=== PATIENT | female | born 1980 | race Caucasian/White ===

== ENCOUNTER 2017-11-29 06:48 | Day surgery (SDC) | payer BC ==
[~2017-11-29 06:48] MED LIST: Lactated Ringers 1,000 ML IV SCH; Lidocaine 1%/Sod Bicarbonate in NS 8.4% 1 ML Syringe IV PRN; Sodium Chloride 0.9% 10 ML Syringe FLUSH PRN
[2017-11-29] MEDS ORDERED: Bupivacaine 0.5% 30 ML SDV ONE (07:30)
--- NOTE | 2017-11-29 07:32 | PCM.PREANE ---
Preanesthetic Assessment - Anesthesia/Transfusion/Family Hx Anesthesia History: Prior Anesthesia Without Reaction Family History of Anesthesia Reaction: No Transfusion History: No Prior Transfusion(s) - Review of Systems General: Other (cold 1 week ago, no syptoms) Pulmonary: Other (hx of pulmonary emboli related to control pill, protein s deficiency, no current treatment) Cardiovascular: Other (SR, old inferior infarct) Gastrointestinal: No Symptoms Neurological: No Symptoms - Physical Assessment NPO Status Date: 11/28/17 NPO Status Time: 18:00 Pulse: 89 O2 Sat by Pulse Oximetry: 94 Respiratory Rate: 16 Blood Pressure: 141/88 Temperature: 36.6 C Weight: 119 kg ASA Class: 2 Mental Status: Alert & Oriented x3 Airway Class: Mallampati = 3 Dentition: Reports: Normal Dentition Thyro-Mental Finger Breadths: 3 Mouth Opening Finger Breadths: 3 ROM/Head Extension: Full Lungs: Clear to Auscultation, Normal Respiratory Effort Cardiovascular: Regular Rate, Regular Rhythm, No Murmurs - Lab Values: Laboratory Last Values WBC 7.09 K/mm3 (3.98-10.04) 11/29/17 07:15 RBC 4.54 M/mm3 (3.98-5.22) 11/29/17 07:15 Hgb 13.2 gm/L (11.2-15.7) 11/29/17 07:15 Hct 41.3 % (34.1-44.9) 11/29/17 07:15 MCV 91.0 fl (79.4-94.8) 11/29/17 07:15 MCH 29.1 pg (25.6-32.2) 11/29/17 07:15 MCHC 32.0 g/dl (32.2-35.5) L 11/29/17 07:15 RDW Std Deviation 43.9 fL (36.4-46.3) 11/29/17 07:15 Plt Count 322 K/mm3 (182-369) 11/29/17 07:15 MPV 9.4 fl (9.4-12.3) 11/29/17 07:15 Neut % (Auto) 68.5 % (34.0-71.1) 11/29/17 07:15 Lymph % (Auto) 22.6 % (19.3-51.7) 11/29/17 07:15 Crosby % (Auto) 6.1 % (4.7-12.5) 11/29/17 07:15 Eos % (Auto) 2.4 (0.7-5.8) 11/29/17 07:15 Baso % (Auto) 0.4 % (0.1-1.2) 11/29/17 07:15 Neut # (Auto) 4.86 K/mm3 (1.56-6.13) 11/29/17 07:15 Lymph # (Auto) 1.60 K/mm3 (1.18-3.74) 11/29/17 07:15 Crosby # (Auto) 0.43 K/mm3 (0.24-0.36) H 11/29/17 07:15 Eos # (Auto) 0.17 K/mm3 (0.04-0.36) 11/29/17 07:15 Baso # (Auto) 0.03 K/mm3 (0.01-0.08) 11/29/17 07:15 Urine HCG, Qual Negative (NEGATIVE) 11/29/17 06:55 - Allergies Allergies/Adverse Reactions: Allergies Allergy/AdvReac Type Severity Reaction Status Date / Time animal dander Allergy Cannot Verified 11/28/17 10:34 Remember seasonal allergies Allergy Cannot Uncoded 11/28/17 10:34 Remember - Blood Blood Available: No Product(s) Available: None - Anesthesia Plan Pre-Op Medication Ordered: None - Acknowledgements Anesthesia Type Planned: General Anesthesia Pt an Appropriate Candidate for the Planned Anesthesia: Yes Alternatives and Risks of Anesthesia Discussed w Pt/Guardian: Yes Pt/Guardian Understands and Agrees with Anesthesia Plan: Yes PreAnesthesia Questionnaire HEENT History: Reports: Allergic Rhinitis Cardiovascular History: Reports: None Respiratory History: Reports: PE Gastrointestinal History: Reports: None Genitourinary History: Reports: None, STD, UTI, Recurrent [employer] History: Reports: Other (See Below) Other OB/BYN History: herpes genitalia, irregular menses, pelvic pain, vaginal pain Musculoskeletal History: Reports: None Neurological History: Reports: Migraines Psychiatric History: Reports: None Endocrine/Metabolic History: Reports: Obesity/BMI 30+ Hematologic History: Reports: Other (See Below) Other Hematologic History: blood clotting disorder, protein S deficiency Immunologic History: Reports: None Oncologic (Cancer) History: Reports: None Dermatologic History: Reports: None - Past Surgical History Head Surgeries/Procedures: Reports: None HEENT Surgical History: Reports: Oral Surgery Cardiovascular Surgical History: Reports: None Respiratory Surgical History: Reports: None GI Surgical History: Reports: Cholecystectomy Endocrine Surgical History: Reports: None Neurological Surgical History: Reports: None Musculoskeletal Surgical History: Reports: None Oncologic Surgical History: Reports: None Dermatological Surgical History: Reports: None - SUBSTANCE USE Smoking Status *Q: Never Smoker Recreational Drug Use History: No - HOME MEDS Home Medications: Home Meds valACYclovir [Valtrex] 500 mg PO DAILY PRN 11/28/17 [History] - CURRENT (IN HOUSE) MEDS Current Meds: Current Medications Lactated Ringer's (Ringers, Lactated) 1,000 mls @ 125 mls/hr IV ASDIRECTED DORETHA Stop: 11/29/17 18:00 Lidocaine/Sodium Bicarbonate (Buffered Lidocaine 1% In Ns 8.4%) 0.25 ml IV ONETIME PRN PRN Reason: Prior to IV Start Stop: 11/29/17 18:00 Sodium Chloride (Saline Flush) 10 ml FLUSH ASDIRECTED PRN PRN Reason: Keep Vein Open Stop: 11/29/17 18:00 Discontinued Medications Bupivacaine HCl (Marcaine 0.5%) Confirm Administered Dose 30 ml .ROUTE .STK-MED ONE Stop: 11/29/17 07:31
[2017-11-29] MEDS ORDERED: Ondansetron 4 MG/2 ML SDV ONE (07:49)
[2017-11-29] MEDS ORDERED: Ketorolac 30 MG/ML SDV ONE (07:49)
[2017-11-29] MEDS ORDERED: Rocuronium 50 MG/5 ML Vial ONE (07:49)
[2017-11-29] MEDS ORDERED: ceFAZolin 1 GM Vial ONE (07:49)
[2017-11-29] MEDS ORDERED: Propofol 200 MG/20 ML SDV ONE ×2 (07:49→08:10)
[2017-11-29] MEDS ORDERED: Dexamethasone 4 MG/ML 5 ML MDV ONE (07:49)
[2017-11-29] MEDS ORDERED: fentaNYL 250 MCG/5 ML SDV ONE (07:50)
[2017-11-29] MEDS ORDERED: Midazolam 1 MG/ML 2 ML SDV ONE (07:50)
[2017-11-29] MEDS ORDERED: HYDROmorphone 1 MG/ML Syringe ONE (08:43)
[2017-11-29] MEDS ORDERED: fentaNYL 100 MCG/2 ML SDV ONE (08:58)
[2017-11-29] MEDS ORDERED: Neostigmine Methylsulfate 1 MG/ML 5 ML Syringe ONE (09:13)
[2017-11-29] MEDS ORDERED: Lactated Ringers 1,000 ML ONE (09:29)
--- NOTE | 2017-11-29 09:33 | PCM.POSTAN ---
POST ANESTHESIA ASSESSMENT - MENTAL STATUS Mental Status: Alert, Oriented - VITAL SIGNS Pulse Rate: 75 SaO2: 94 Resp Rate: 14 Blood Pressure: 160/75 Temperature: 36.3 C - RESPIRATORY Respiratory Status: Respiratory Rate WNL, Airway Patent, O2 Saturation Stable, Supplemental Oxygen - CARDIOVASCULAR CV Status: Pulse Rate WNL, Blood Pressure Stable - GASTROINTESTINAL GI Status: No Symptoms - PAIN Pain Score: 0 - POST OP HYDRATION Hydration Status: Adequate & Stable
[2017-11-29] MEDS ORDERED: Meperidine PF 50 MG/ML Syringe IVPUSH PRN (09:34)
[2017-11-29] MEDS ORDERED: fentaNYL 100 MCG/2 ML SDV IVPUSH PRN (09:34)
[2017-11-29] MEDS ORDERED: HYDROmorphone 0.5 MG/0.5 ML Syringe IVPUSH PRN (09:34)
--- NOTE | 2017-11-29 09:42 | PCM.OPNOTE ---
- General Post-Op/Procedure Note Date of Surgery/Procedure: 11/29/17 Operative Procedure(s): Laparoscopic right salpingectomy Findings: Overall normal-appearing uterus with small fibroid on posterior uterine wall, normal-appearing bilateral ovaries, normal-appearing left fallopian tube. Right fallopian tube with hydrosalpinx. Normal-appearing appendix. Overall normal-appearing bowel. Unable to visualize upper abdomen. Pre Op Diagnosis: Pelvic pain in female, vaginal pain Post-Op Diagnosis: Same, right hydrosalpinx Anesthesia Technique: General ET Tube Primary Surgeon: Efren Rsacon Secondary Surgeon: Leonardo Aquino Anesthesia Provider: Destiny Rodriguez Reason Paste Plant Supervisor Was Necessary: Assist with laparoscopy Role of Paste Plant Supervisor: Manipulation of laparoscopic instruments Pathology: Right fallopian tube Fluid Replacement, Intraop: 1,600 Output, Urine Amount: 50 EBL in mLs: 5 Complications: None Condition: Good Free Text/Narrative:: Procedure in detail: The patient was seen in the preoperative holding area and the previously signed consents and H&P were reviewed. Patient agreed with previously signed consents that included diagnostic laparoscopy, lysis of adhesions, possible unilateral or bilateral salpingectomy, possible unilateral or bilateral salpingo-oophorectomy. Patient was confirmed to have a negative urine test. She patient was taken back to the operating room and given general anesthesia with an endotracheal tube was placed without difficulty. She is placed in dorsal lithotomy position using yellowfin stirrups. She is prepped and draped in normal sterile fashion. Attention was turned to the patient's perineum and a speculum was placed in the cervix was visualized. A single-tooth tenaculum was used to grasp the anterior lip of the cervix. A uterine sound was placed through the cervical os and passed without difficulty and the uterus sounded at 9 cm. A Sonam manipulator with a 8 mm tip was placed into the uterus without difficulty. The single-toothed tenaculum and speculum were removed from the vagina. Attention was then turned to the patient's abdomen. The inferior umbilicus was injected with 0.5% Marcaine for local anesthetic. A stab incision was made with the scalpel. A Veress needle was attempted to be passed through the incision into the peritoneal cavity and insufflation was started but the pressure was elevated compared to what normal intraperitoneal pressure normally would be. The Veress needle entry was abandoned. Direct entry with a trocar under direct visualization with the camera was then used. The peritoneal cavity was able to be entered with direct visualization. The gas was then turned on and opening pressure was noted to be 13 mmHg. The abdomen was then insufflated until intraperitoneal pressure of 20 mmHg was obtained. The omentum and intestines were inspected and there was noted to be a perforation through the omentum. This perforation was hemostatic. There was no injury to the intestines. Attention was then turned to the suprapubic area where an area approximately 2 finger breaths above the pubic symphysis was injected with 0.5% Marcaine for local anesthetic. Stab incision was made with scalpel. A 5 mm trocar was inserted under direct visualization. The pelvis was then further explored and was noted to have an overall normal-appearing uterus except for a small fibroid measuring approximately 5 mm. The right ovary was noted to have a large ovulatory cyst present. The right fallopian tube was noted to be enlarged with hydrosalpinx in the distal half of the fallopian tube. The left fallopian tube and ovary were normal in appearance. Decision was made to remove the right fallopian tube due to this hydrosalpinx. Attention was then turned to the right lower quadrant of the abdomen and an area approximately penitentiary between the ASIS and the umbilicus was injected with 0.5% Marcaine for local anesthetic. A stab incision was made with a scalpel. A 5 mm trocar was inserted under direct visualization. The fallopian tube was then dissected away from the broad ligament using a LigaSure vessel sealing laparoscopic device. Hemostasis was assured from the surgical bed using the LigaSure vessel sealing device. The fallopian tube was then removed through the 5 mm of her pubic trocar and sent for pathology. The rest of the abdomen wasn't explored and noted to be free of any adhesions. The cecum was evaluated and noted be normal and the appendix was visualized and noted to be normal without any adhesions or evidence of inflammation. The case was completed at this time. The suprapubic and right lower quadrant port were removed and hemostasis was noted. The gas was removed from the abdomen through the umbilical port. The port sites were then closed using interrupted suture with 4-0 Monocryl. Skin glue was placed over the incisions. The uterine manipulator was removed. All sponge, instrument and needle counts were correct 2 at the end of case. The patient was awoken from anesthesia and taken to the recovery area. She will be discharged from the recovery area once she is able to tolerate a small amount of regular diet, voiding without difficulty, her pain is controlled with oral medication and she is ambulating without difficulty. She will be seen in the office in 2 weeks or earlier as needed. Review of images from case IMG 001: View of uterus with posterior fibroid present IMG 002: Global view of overall normal-appearing uterus with fibroid on posterior side of uterus IMG 003: Right ovary with ovulatory cyst versus corpus luteum cyst IMG 004 attempted picture of right fallopian tube IMG 005: Dilated right fallopian tubes suspected to be hydrosalpinx IMG 006: Normal-appearing left ovary and fallopian tube IMG 007: Additional review of left fallopian tube with normal fimbria IMG 008: Hemostatic surgical bed with excised fallopian tube in upper central portion of picture IMG 009: Normal-appearing appendix
[2017-11-29 11:27] VITALS: BP 119/73
== END 2017-11-29 11:30 | disposition home or self-care (01) ==
LOC: JD.SDS 06:48
PROVIDERS: ATTEND Obstetrics & Gynecology
DX: N70.11 Chronic salpingitis (principal); J30.9 Allergic rhinitis, unspecified; D68.9 Coagulation defect, unspecified; A60.00 Herpesviral infection of urogenital system, unspecified; N92.6 Irregular menstruation, unspecified; G43.909 Migraine, unspecified, not intractable, without status migrainosus; B00.2 Herpesviral gingivostomatitis and pharyngotonsillitis; A64 Unspecified sexually transmitted disease; E66.9 Obesity, unspecified; Z91.048 Other nonmedicinal substance allergy status; Z79.899 Other long term (current) drug therapy; Z86.711 Personal history of pulmonary embolism; Z68.41 Body mass index [BMI] 40.0-44.9, adult; Z90.49 Acquired absence of other specified parts of digestive tract
CPT/HCPCS: 36415; 58661; 81025; 85025; 87086; J0690; J1100; J1170; J1885; J2250; J2405; J2710; J3010; J7120; 00840; J2704